=== PATIENT | male | born 1985 | race Caucasian/White ===

== ENCOUNTER 2017-09-03 08:47 | Emergency (ER) | payer OTHER ==
[~2017-09-03] VITALS: Ht 180.3 cm; Wt 113.4 kg
--- NOTE | 2017-09-03 09:25 | ED CARDIAC/CP/PALPITATIONS ---
History of Present Illness General Chief Complaint: Chest Pain Stated Complaint: TIGHNESS IN CHEST ? ANIEXTY Source: patient, family Exam Limitations: no limitations Allergies Coded Allergies: No Known Drug Allergies (Intermediate, NONE 09/03/17) Reconcile Medications Ibuprofen 800 MG TABLET 1 TAB PO TID PRN PAIN Triage Note: C/O LIGHTHEADEDNESS, DIZZINESS, CHEST HEAVINESS AND PALPITATIONS SINCE THIS AM. HAD SIMILIAR EPISODE WHILE DRIVING FROM [place] LAST WEEK. WAS SEEN AT A LOCAL HOSPITAL AND DISCHARGED. (DXD WITH DEHYDRATION AND ANXIETY). Triage Nurses Notes Reviewed? yes Onset: Gradual Duration: day(s): Timing: recent history Quality/Severity: moderate, pressure Location: substernal Radiation: no radiation HPI: 32yo male presents to ED complaining of chest pressure and palpitations beginning earlier this morning. Chest pressure described as substernal, 5/10, nonradiating. Patient also reports intermittent lightheadedness and dizziness over the past several days. Patient states that he was seen at hospital in [place] 05/31/17 while he was there on vacation. Patient states at that time there was no cardiac abnormality detected, his symptoms improved. Symptoms returned again this morning. Patient denies hemoptysis, syncope, abdominal pain , vomiting. (Toña Bonner) Vital Signs & Intake/Output Vital Signs & Intake/Output Vital Signs Date Time Temp Pulse Resp B/P B/P Pulse O2 O2 Flow FiO2 Mean Ox Delivery Rate 09/03 1030 98.0 70 20 125/73 98 Room Air 09/03 0857 98.4 80 20 123/84 97 Room Air (Osvaldo Jeter DO) Past History Travel History Traveled to [place] past 21 day No Medical History Any Pertinent Medical History? none Neurological: NONE EENT: NONE Cardiovascular: NONE Respiratory: NONE Gastrointestinal: NONE Hepatic: NONE Renal: NONE Musculoskeletal: NONE Psychiatric: NONE Endocrine: NONE Surgical History Surgical History: non-contributory Psychosocial History What is your primary language Lithuanian Tobacco Use: Never used ETOH Use: denies use Family History Hx Contributory? No (Toña Bonner) Review of Systems Review of Systems Constitutional: Reports: see HPI. EENTM: Reports: no symptoms. Respiratory: Reports: no symptoms. Cardiovascular: Reports: see HPI. GI: Reports: no symptoms. Genitourinary: Reports: no symptoms. Musculoskeletal: Reports: no symptoms. Skin: Reports: no symptoms. Neurological/Psychological: Reports: no symptoms. Hematologic/Endocrine: Reports: no symptoms. Immunologic/Allergic: Reports: no symptoms. All Other Systems: Reviewed and Negative (Lola CORRAL,Toña Albarran) Physical Exam Physical Exam General Appearance: well developed/nourished, no apparent distress, alert, awake Head: atraumatic, normal appearance Eyes: Bilateral: normal appearance. Ears, Nose, Throat: hearing grossly normal Neck: normal inspection, supple, full range of motion Respiratory: normal breath sounds, no respiratory distress, lungs clear Cardiovascular: regular rate/rhythm, normal peripheral pulses, STERNAL CHEST TENDERNESS Peripheral Pulses: 2+ radial (R), 2+ radial (L) Gastrointestinal: normal bowel sounds, soft, non-tender, no organomegaly Back: normal inspection, normal range of motion Extremities: normal inspection, normal range of motion Neurologic/Psych: awake, alert, oriented x 3 Skin: intact, normal color, warm/dry Core Measures ACS in differential dx? Yes CVA/TIA Diagnosis No Sepsis Present: No Sepsis Focused Exam Completed? No (Toña Bonner) Progress Differential Diagnosis: AMI, CHF/pulm edema, costochondritis, hyperventilation, musculoskeletal pain, myocarditis, pericarditis, pneumonia, pneumothorax, PSVT, pulmonary embolism, unstable angina, V-fib/V-Tach Plan of Care: Orders Procedure Date/time Status D-DIMER 09/03 928 Complete Telemetry/Hospital Housekeeper 09/03 922 Active URINE DRUG SCREEN FOR ER ONLY 09/03 922 Complete TROPONIN LEVEL 09/03 922 Complete COMPREHENSIVE METABOLIC PANEL 09/03 922 Complete CBC WITHOUT DIFFERENTIAL 09/03 922 Complete EKG 09/03 0855 Active Laboratory Tests 09/03/17 1026: Urine Opiates Screen < 100, Methadone Screen < 40, Barbiturate Screen < 60, Ur Phencyclidine Scrn < 6.00, Amphetamines Screen < 100, U Benzodiazepines Scrn < 85, Urine Cocaine Screen < 50, Urine Cannabis Screen 72.20 H 09/03/17 0948: Anion Gap 9, Estimated GFR > 60, BUN/Creatinine Ratio 16.3, Glucose 89, Calcium 9.6, Total Bilirubin 0.6, AST 62 H, ALT 125 H, Alkaline Phosphatase 67, Troponin I < 0.01, Total Protein 7.4, Albumin 4.2, Globulin 3.2, Albumin/ Globulin Ratio 1.3, D-Dimer High Sensitivty < 200, CBC w Diff NO MAN DIFF REQ, RBC 5.05, MCV 90.7, MCH 31.0, MCHC 34.1, RDW 12.6, MPV 8.1, Gran % 66.2, Lymphocytes % 24.0, Monocytes % 7.8, Eosinophils % 1.6, Basophils % 0.4, Absolute Granulocytes 3.7, Absolute Lymphocytes 1.3, Absolute Monocytes 0.4, Absolute Eosinophils 0.1, Absolute Basophils 0 Patient is young without cardiac risk factors, no past medical history. Chest x -ray is clear, troponin enzyme negative, EKG without acute ischemic changes. Patient's chest pain is atypical, reproducible on physical exam. Patient was given a referral to a nuclear equipment operator and will start ibuprofen 800 mg up with pain/ possible inflammatory condition. There is a low suspicion for acute coronary syndrome based on this patient's clinical presentation. The diagnosis of pulmonary embolism was considered however d-dimer negative, low suspicion based on this finding. The patient is in no acute distress, nontoxic appearing, vital signs are stable. The patient agrees with the plan of care. The patient was discussed with Dr. Jeter who agrees with the plan of care. Diagnostic Imaging: Viewed by Me: Radiology Read. Discussed w/RAD: Radiology Read. CXR Impression: PATIENT: SHANNAN DAIGLE JR PRESENT AGE: 32 PATIENT ACCOUNT NO: [id number] : 84 LOCATION: [facility] ORDERING PHYSICIAN: Toña CORRAL SERVICE DATE: 09/03/17 EXAM TYPE: RAD - XRY-CHEST XRAY, TWO VIEWS EXAMINATION: CHEST 2 VIEWS CLINICAL INFORMATION: Chest pain. COMPARISON: None. TECHNIQUE: PA and lateral views of the chest were obtained. FINDINGS: The cardiac silhouette is not enlarged. The mediastinal and hilar contours are unremarkable. There are neither pleural effusions nor pneumothoraces. There are no consolidations. The osseous structures are unremarkable. IMPRESSION: No evidence for acute disease. DICTATED BY: Luke Marroquin MD DATE/TIME DICTATED:09/03/17953 FOUNDRY TENDER:CARMELA DATE/TIME TRANSCRIBED:09/03/17953 CONFIDENTIAL, DO NOT COPY WITHOUT APPROPRIATE AUTHORIZATION. <Electronically signed in Other Vendor System> SIGNED BY: Luke Marroquin MD 09/03/17 0958 Initial ED EKG: sinus rhythm @75bpm, nonspecific ST changes (Lola CORRAL,Toña Albarran) Departure Departure Disposition: HOME OR SELF CARE Condition: Stable Clinical Impression Primary Impression: Chest pain Qualifiers: Chest pain type: unspecified Qualified Code: R07.9 - Chest pain, unspecified Referrals: Patient Has No Primary Care Dr (PCP/Family) Additional Instructions: Follow-up with nuclear equipment operator you're given a referral to today. Call the office to make an appointment later today for as soon as possible. Return if you have any worsening symptoms or concerns including increasing chest pain, shortness of breath, feeling faint. Please note that there might be incidental findings in your evaluation that are unrelated to the current emergency department visit. Please notify your primary care doctor about this emergency department visit in order to obtain and review all of the testing performed so that these incidental findings can be monitored as needed. If you had an x-ray performed, please understand that some fractures may not be seen on the initial set of x-rays. If your symptoms persist you might need a repeat set of x-rays to check for such a fracture. If you had a laceration evaluated, please understand that foreign bodies such as glass or wood may not be visible to the naked eye or on plain x-rays. If the wound becomes red, swollen, increasingly more painful or if there is any drainage from the wound, please have it reevaluated by a physician for the possibility of a retained foreign body. If you're unable to follow up as outlined in the discharge instructions please return to the emergency department. Thank you for choosing the [facility] Emergency Department for your care. It was a pleasure to serve you today. Departure Forms: Customer Survey General Discharge Information Prescriptions: Current Visit Scripts Ibuprofen 1 TAB PO TID PRN PAIN #30 TAB (Toña Bonner) PA/WATER SUPERVISOR Co-Sign Statement Statement: ED Attending supervision documentation- [] I saw and evaluated the patient. I have also reviewed all the pertinent lab results and diagnostic results. I agree with the findings and the plan of care as documented in the PA's/WATER SUPERVISOR's documentation. [x] I have reviewed the ED Record and agree with the PA's/WATER SUPERVISOR's documentation. [] Additions or exceptions (if any) to the PAs/WATER SUPERVISOR's note and plan are summarized below: [] (Osvaldo Jeter DO) Critical Care Note Critical Care Note Critical Care Time: non-applicable (Lola CORRAL,Toña Albarran) (Lola CORRAL,Toña Albarran)
--- NOTE | 2017-09-03 09:58 | RADIOLOGY REPORT ---
EXAMINATION: CHEST 2 VIEWS CLINICAL INFORMATION: Chest pain. COMPARISON: None. TECHNIQUE: PA and lateral views of the chest were obtained. FINDINGS: The cardiac silhouette is not enlarged. The mediastinal and hilar contours are unremarkable. There are neither pleural effusions nor pneumothoraces. There are no consolidations. The osseous structures are unremarkable. IMPRESSION: No evidence for acute disease.
[2017-09-03 10:01] LABS: ABSOLUTE BASOPHIL COUNT 0 /CUMM (0.0-0.2); ABSOLUTE EOSINOPHIL COUNT 0.1 /CUMM (0.0-0.7); ABSOLUTE GRANULOCYTE CT 3.7 /CUMM (1.4-6.5); ABSOLUTE LYMPH COUNT 1.3 /CUMM (1.2-3.4); ABSOLUTE MONOCYTE COUNT 0.4 /CUMM (0.10-0.60); BASOPHIL % 0.4 % (0.0-2.0); EOSINOPHIL % 1.6 % (0-5); GRANULOCYTE % 66.2 % (42.2-75.2); HEMATOCRIT 45.8 % (42-52); MEAN CORPUSCULAR HGB CONC 34.1 G/DL (33.0-37.0); MEAN CORPUSCULAR VOLUME 90.7 FL (80.0-94.0); MEAN PLATELET VOLUME 8.1 FL (7.4-10.4); PLATELET COUNT 194 /CUMM (130-400); RBC DISTRIBUTION WIDTH 12.6 % (11.5-14.5); RED BLOOD CELL CT 5.05 /CUMM (4.70-6.10); WHITE BLOOD CELL COUNT 5.6 /CUMM (4.8-10.8)
[2017-09-03 10:30] VITALS: BP 125/73
[2017-09-03] MEDS ORDERED: IBUPROFEN800 M1 PO (18:38)
== END 2017-09-03 11:22 ==
LOC: ERH 08:47
PROVIDERS: Physician Assistant
DX: R07.89 Other chest pain (principal)
CPT/HCPCS: 71046; 80307; 93005; 93010

== ENCOUNTER 2017-09-12 18:14 | Emergency (ER) | payer OTHER ==
[~2017-09-12] VITALS: Ht 177.8 cm; Wt 117.9 kg
[~2017-09-12 18:14] MED LIST: IBUPROFEN800 M1 PO
--- NOTE | 2017-09-12 19:53 | RADIOLOGY REPORT ---
EXAMINATION: XR CHEST CLINICAL INFORMATION: Chest pain. COMPARISON: Chest radiograph 09/03/2017. TECHNIQUE: 2 views of the chest were obtained. FINDINGS: The cardiomediastinal silhouette is normal in appearance low lung volumes are present with the fifth anterior rib segments terminating projection with the lung bases. No effusions or pneumothoraces are identified. Making allowances for low lung volumes, the grossly normal pattern of pulmonary vasculature is noted in the lungs are clear. No skeletal abnormalities are noted aside from minimal multilevel anterior endplate osteophytosis of the thoracic spine. IMPRESSION: Normal chest. Lungs clear.
--- NOTE | 2017-09-12 20:00 | ED CARDIAC/CP/PALPITATIONS ---
History of Present Illness General Chief Complaint: Palpitations Stated Complaint: SIB URGENT CARE PALPITATIONS, SWEATS, HIGH BP, +V Source: patient Exam Limitations: no limitations Vital Signs & Intake/Output Vital Signs & Intake/Output Vital Signs Date Time Temp Pulse Resp B/P B/P Pulse O2 O2 Flow FiO2 Mean Ox Delivery Rate 09/12 2134 84 18 140/86 98 Room Air 09/12 2057 Room Air 09/12 1859 98.3 09/12 1856 98.3 82 16 149/90 97 Room Air ED Intake and Output 09/13 0000 09/12 1200 Intake Total Output Total Balance Patient 260 lb Weight Weight Reported by Patient Measurement Method Allergies Coded Allergies: No Known Drug Allergies (Intermediate, NONE 09/03/17) Reconcile Medications Ibuprofen 800 MG TABLET 1 TAB PO TID PRN pain Ibuprofen 800 MG TABLET 1 TAB PO TID PRN PAIN Triage Note: PT STATES WHILE HE WAS AT WORK TODAY HIS HEART WAS BEATING FAST AND HE VOMITED AND WHEN HE WENT HOME HIS BP AND HR WHERE HIGH. PT STATES HE WENT TO URGENT CARE AND HIS VITAL REMAINED HIGH AND HE WAS TOLD TO COME TO ED. PT STATES DURING THE TIME OF HIS RAPID HEART RATE HE DID HAVE CHEST PAIN HAS SUBSIDED BUT IT IS STILL THERE. PT STATES HE STILL FEELS DIZZY. Triage Nurses Notes Reviewed? yes Onset: Gradual Duration: hour(s): Timing: recent history Quality/Severity: moderate Location: central Radiation: no radiation Activities at Onset: work Prior Chest Pain/Card Workup: similar symptoms Modifying Factors: Improves With: rest. Worsens With: palpation. Aspirin Today: no aspirin today Associated Symptoms: chest wall pain. HPI: 32-year-old gentleman presents with 3-4 hours of parasternal chest wall tenderness in the sensation of palpitations. He notes he was seen a few days ago with very similar symptoms. 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 He has no shortness of breath dyspnea wheezing chills diaphoresis dizziness or syncopal type symptoms. He is otherwise well. Past History Travel History Traveled to [place] past 21 day No Medical History Any Pertinent Medical History? see below for history Neurological: NONE EENT: NONE Cardiovascular: NONE Respiratory: NONE Gastrointestinal: NONE Hepatic: NONE Renal: NONE Musculoskeletal: NONE Psychiatric: NONE Endocrine: NONE Surgical History Surgical History: non-contributory Psychosocial History What is your primary language French Tobacco Use: Never used ETOH Use: denies use Illicit Drug Use: denies illicit drug use Family History Hx Contributory? No Review of Systems Review of Systems Constitutional: Denies: see HPI. Physical Exam Physical Exam Respiratory: normal breath sounds, no respiratory distress, parasternal chest wall tenderness to palpation. Cardiovascular: regular rate/rhythm Comments: Review of Systems - except as otherwise noted in HPI Review of Systems Constitutional:no symptoms. EENTM:no symptoms. Respiratory:no symptoms. Cardiovascular:no symptoms. GI:no symptoms. Genitourinary:no symptoms. Musculoskeletal:no symptoms. Skin:no symptoms. Neurological/Psychological:no symptoms. Hematologic/Endocrine:no symptoms. Immunologic/Allergic:no symptoms. All Other Systems: Reviewed and Negative Physical Exam Physical Exam General Appearance: well developed/nourished, no apparent distress Head: atraumatic, normal appearance Eyes: Bilateral: normal appearance. Ears, Nose, Throat: normal pharynx, normal ENT inspection Neck: normal inspection, supple, full range of motion CV/Pulm.... see above Gastrointestinal: normal bowel sounds, soft, non-tender, no organomegaly Back: normal inspection, normal range of motion Extremities: normal inspection, normal capillary refill, normal range of motion, no edema Neurologic/Psych: no motor/sensory deficits, awake, alert, oriented x 3 Skin: intact, normal color, warm/dry Core Measures ACS in differential dx? Yes CVA/TIA Diagnosis Yes Sepsis Present: No Sepsis Focused Exam Completed? No Progress Differential Diagnosis: rib fracture, sepsis, unstable angina, V-fib/V-Tach Plan of Care: Orders Procedure Date/time Status THYROID STIMULATING HORMONE 09/12 1856 Complete TROPONIN LEVEL 09/12 1856 Complete FREE T4 09/12 1856 Complete COMPREHENSIVE METABOLIC PANEL 09/12 1856 Complete CBC WITHOUT DIFFERENTIAL 09/12 1856 Complete EKG 09/12 1814 Active Laboratory Tests 09/12/171954: Anion Gap 11, Estimated GFR > 60, BUN/Creatinine Ratio 14.4, Glucose 89, Calcium 9.7, Total Bilirubin 0.4, AST 47, ALT 96 H, Alkaline Phosphatase 62, Troponin I < 0.01, Total Protein 7.5, Albumin 4.3, Globulin 3.2, Albumin/Globulin Ratio 1.3 , TSH 2.590, Free T4 0.84, CBC w Diff NO MAN DIFF REQ, RBC 4.75, MCV 91.2, MCH 31.0, MCHC 34.0, RDW 12.8, MPV 8.4, Gran % 73.5, Lymphocytes % 19.0 L, Monocytes % 6.4, Eosinophils % 0.9, Basophils % 0.2, Absolute Granulocytes 6.6 H, Absolute Lymphocytes 1.7, Absolute Monocytes 0.6, Absolute Eosinophils 0.1, Absolute Basophils 0 CXR Impression: no acute abnormality, no infiltrates, normal size heart, normal mediastinum, PATIENT: SHANNAN DAIGLE JR PRESENT AGE: 32 PATIENT ACCOUNT NO: [id number] : 84 LOCATION: [facility] ORDERING PHYSICIAN: Rafat CORRAL SERVICE DATE: 09/12/17 EXAM TYPE: RAD - XRY-CHEST XRAY , TWO VIEWS EXAMINATION: XR CHEST CLINICAL INFORMATION: Chest pain. COMPARISON: Chest radiograph 09/03/2017. TECHNIQUE: 2 views of the chest were obtained. FINDINGS: The cardiomediastinal silhouette is normal in appearance low lung volumes are present with the fifth anterior rib segments terminating projection with the lung bases. No effusions or pneumothoraces are identified. Making allowances for low lung volumes, the grossly normal pattern of pulmonary vasculature is noted in the lungs are clear. No skeletal abnormalities are noted aside from minimal multilevel anterior endplate osteophytosis of the thoracic spine. IMPRESSION: Normal chest. Lungs clear. DICTATED BY: Cali Duenas MD DATE /TIME DICTATED:09/12/171947 PARTS CONSULTANT:CARMELA DATE/TIME TRANSCRIBED: 09/12/171947 CONFIDENTIAL, DO NOT COPY WITHOUT APPROPRIATE AUTHORIZATION. < Electronically signed in Other Vendor System> SIGNED BY: Cali Duenas MD 09/12/171952 Initial ED EKG: none Departure Departure Disposition: HOME OR SELF CARE Condition: Stable Clinical Impression Primary Impression: Palpitations Secondary Impressions: Chest pain Referrals: Patient Has No Primary Care Dr (PCP/Family) Departure Forms: Customer Survey General Discharge Information Prescriptions: Current Visit Scripts Ibuprofen 1 TAB PO TID PRN pain #30 TAB Comments Patient has reproducible chest wall tenderness. He has 2 negative troponins with benign EKG is in recent days. His diaper was negative last visit. I discussed this at great length with the patient. He will follow-up with his behavioral health professional. He has appointment within the week. Critical Care Note Critical Care Note Critical Care Time: non-applicable
[2017-09-12 20:11] LABS: ABSOLUTE BASOPHIL COUNT 0 /CUMM (0.0-0.2); ABSOLUTE EOSINOPHIL COUNT 0.1 /CUMM (0.0-0.7); ABSOLUTE GRANULOCYTE CT 6.6 /CUMM (1.4-6.5); ABSOLUTE LYMPH COUNT 1.7 /CUMM (1.2-3.4); ABSOLUTE MONOCYTE COUNT 0.6 /CUMM (0.10-0.60); BASOPHIL % 0.2 % (0.0-2.0); EOSINOPHIL % 0.9 % (0-5); GRANULOCYTE % 73.5 % (42.2-75.2); HEMATOCRIT 43.3 % (42-52); MEAN CORPUSCULAR VOLUME 91.2 FL (80.0-94.0); MEAN PLATELET VOLUME 8.4 FL (7.4-10.4); PLATELET COUNT 244 /CUMM (130-400); RBC DISTRIBUTION WIDTH 12.8 % (11.5-14.5); RED BLOOD CELL CT 4.75 /CUMM (4.70-6.10)
[2017-09-12] MEDS ORDERED: IBUPROFEN800 M1 PO (21:27)
[2017-09-12 21:34] VITALS: BP 140/86
== END 2017-09-12 21:37 ==
LOC: ERH 18:14
PROVIDERS: Physician Assistant
DX: R00.2 Palpitations (principal); R07.89 Other chest pain
CPT/HCPCS: 71046; 93005; 93010